=== PATIENT | female | born 1955 | race Caucasian/White ===

== ENCOUNTER 2020-07-11 17:41 | Inpatient (IN) | payer BC, OTHER ==
--- NOTE | 2020-07-11 18:37 | RAD ---
LEFT ELBOW: 07/11/20 Four views. HISTORY: Elbow pain. Injury with pain. No evidence of fracture. No evidence of joint effusion. IMPRESSION: No acute abnormality identified. POS: AGW
--- NOTE | 2020-07-11 18:39 | RAD ---
LEFT HIP: 07/11/20 Two views. HISTORY: Injury with pain to hip. There is subcapital fracture involving the left hip with mild displacement of the femoral head. There is evidence of fracture involving the left superior pubic ramus at the pubic bone. This is not well evaluated. IMPRESSION: 1. Subcapital fracture left hip. 2. Evidence of fracture of the superior left ramus at the pubic bone. Recommend dedicated AP pel vis. POS: AGW
[2020-07-11 19:05] LABS: #Eosinphils 0.1 thou/uL (0.0-0.7); #Lymphocytes 1.7 thou/uL (1.20-3.40); #Monocytes 0.5 thou/uL (0.11-0.59); #Neutrophils 6.5 thou/uL (1.40-6.50); %Basophils 0.5 % (0.0-1.0); %Eosinophils 0.8 % (0.0-10.0); %Monocytes 6.2 % (0.0-10.0); %Neutrophils 73.5 % (42.0-75.0); Hemoglobin 12.3 g/dL (12.0-16.0); Mean Corpuscular HGB CONC 32.8 g/dL (32.0-36.0); Mean Corpuscular Hemoglobin 30.9 pg (27.0-31.0); Mean Corpuscular Volume 94.1 fL (78.0-98.0); Mean Platelet Volume 6.8 fL (7.4-10.4); Platelet Count 241 thou/uL (130-400); RBC Distribution Width 11.5 % (11.5-14.5); Red Blood Cell (RBC) Count 3.98 mill/uL (4.20-5.40); White Blood Cell (WBC) Count 8.8 thou/uL (4.8-10.8)
[2020-07-11 19:25] LABS: Anion Gap 13 mmol/L (10-20); BUN (Urea Nitrogen) 9 mg/dL (9.8-20.1); Calc. Creatinine Clearance 0 mL/min (70-130); Carbon Dioxide 27 mmol/L (23-31); Chloride 106 mmol/L (98-107); Glucose 118 mg/dL (80-115); Potassium 3.7 mmol/L (3.5-5.1); Sodium 142 mmol/L (136-145)
[2020-07-11] MEDS ORDERED: Acetaminophen 500 MG TAB ONE (20:22)
[2020-07-11] MEDS ORDERED: Morphine 2 MG/ML VIAL SLOW IVP PRN (22:14)
[2020-07-11] MEDS ORDERED: Dextrose 5% in Water 1,000 ML IV PRN (22:14)
[2020-07-11] MEDS ORDERED: hydrALAZINE 20 MG/ML VIAL SLOW IVP PRN (22:14)
[2020-07-11] MEDS ORDERED: Ondansetron ODT 4 MG TAB PO PRN (22:14)
[2020-07-11] MEDS ORDERED: Dextrose 50% Abboject 50 ML SYRINGE SLOW IVP PRN (22:14)
[2020-07-11] MEDS ORDERED: Cyclobenzaprine 10 MG TAB PO PRN (22:42)
[2020-07-11] MEDS ORDERED: Acetaminophen 500 MG TAB PO PRN (22:42)
[2020-07-11] MEDS ORDERED: Ibuprofen 600 MG TAB PO SCH (23:00)
--- NOTE | 2020-07-12 | RAD ---
AP pelvis one view HISTORY: Fall. Injury. FINDINGS: Comminuted minimally displaced fracture involving the left superior pubic ramus is again de monstrated. Mild valgus angulation at a subcapital fracture left hip. Other pubic rami are intact. No displaced sacral fracture evident, although large amount of stool obs cures detail. Phleboliths project over the pelvis. IMPRESSION : Left superior pubic ramus fracture and left hip fracture.
[2020-07-12 01:57] LABS: SARS-CoV-2 PCR by NAA Not Detected (NotDetected)
[2020-07-12 02:22] VITALS: BMI 18.3
[2020-07-12] MEDS ORDERED: Cyclobenzaprine 10 MG TAB PO PRN (04:22)
[2020-07-12] MEDS ORDERED: traMADol HCl 50 MG TAB PO PRN (04:22)
[2020-07-12 05:45] LABS: #Lymphocytes 0.9 thou/uL (1.20-3.40); #Monocytes 0.6 thou/uL (0.11-0.59); #Neutrophils 9.2 thou/uL (1.40-6.50); %Basophils 0.1 % (0.0-1.0); %Eosinophils 0.4 % (0.0-10.0); %Monocytes 5.4 % (0.0-10.0); %Neutrophils 86.1 % (42.0-75.0); Mean Corpuscular HGB CONC 33.2 g/dL (32.0-36.0); Mean Corpuscular Volume 93.3 fL (78.0-98.0); Mean Platelet Volume 6.8 fL (7.4-10.4); Platelet Count 198 thou/uL (130-400); RBC Distribution Width 11.5 % (11.5-14.5); Red Blood Cell (RBC) Count 3.86 mill/uL (4.20-5.40); White Blood Cell (WBC) Count 10.7 thou/uL (4.8-10.8)
[2020-07-12 05:52] LABS: INR-International Normal Ratio 1.2; Prothrombin Time 15.5 sec (12.0-14.7)
--- NOTE | 2020-07-12 05:54 | HP ---
CHIEF COMPLAINT: Left hip pain. HISTORY OF PRESENT ILLNESS: A 65-year-old female, Ms. Zarate was brought to the emergency department complaining of left hip pain. Patient states that she was in her house trying to step over a wooden plank that separates her dogs out from the kitchen. The patient caught her foot on the wood and it would not stop and fell backwards, landing on the left hip, elbow, and left hand. The patient is complaining of left hip pain, pain 9/10. The patient denies loss of consciousness, chest pain, or shortness of breath. The patient has not taken Tylenol or ibuprofen to relieve the pain. The patient is not on anticoagulation. The patient denies loss of consciousness, shortness of breath, chest pain, blurry vision, nausea, or vomiting. REVIEW OF SYSTEMS: Negative except for above. PAST MEDICAL HISTORY: Osteoporosis. MEDICATIONS: None. PAST SURGICAL HISTORY: Unknown. SOCIAL HISTORY: Drinks occasionally. Lives at home with daughter, is active normally. OBJECTIVE: VITAL SIGNS: Blood pressure 128/80, heart rate 94, respiratory rate 20, and O2 saturation 98% on room air. GENERAL: Patient is sitting upright in the stretcher in the ICU, no acute distress. HEENT: Head is normocephalic, atraumatic. No cervical tenderness. Active range of motion and flexion and extension of the patient's neck. CARDIAC: Regular sinus rhythm. LUNGS: Equal breath sounds bilaterally. No respiratory distress. ABDOMEN: Soft, nontender to palpation. EXTREMITIES: Upper extremities 4/5 strength bilaterally. Pain with palpation to the left elbow and left hand. Pain 5/5. Lower extremities bilaterally strength is intact, actively dorsiflex and plantar flex feet bilaterally. Sensation intact. +2 DP, PT pulses. LABORATORY DATA: White blood cell count 8.8, hemoglobin 12.3, hematocrit 37.5, platelet count 241. Chemistry; sodium 142, potassium 3.7, chloride 106, carbon dioxide 27, creatinine 0.71. IMAGING STUDIES: Left hip subcapital fracture. Evidence of fracture in superior left ramus, pubic bone. ASSESSMENT: 1. Ground level fall. 2. Fracture of the superior left ramus, pubic bone, subcapital fracture of the left hip. PLAN: A 65-year-old female status post ground level fall, left hip fracture. The patient was seen in the ED, the patient will be started on DVT prophylaxis. IS and .Dr. Gustafson has seen the patient, is planning on taking the patient to the OR in the morning. Patient will remain n.p.o. After this dictation, I will discuss this patient with Dr. Delgadillo. Job ID: [id number] MTDD
[2020-07-12 06:09] LABS: ALT (SGPT) 19 U/L (8-55); AST (SGOT) 24 U/L (5-34); Albumin 3.7 g/dL (3.4-4.8); Alkaline Phosphatase 59 U/L (40-110); Anion Gap 13 mmol/L (10-20); BUN (Urea Nitrogen) 14 mg/dL (9.8-20.1); Bilirubin, Total 1.2 mg/dL (0.2-1.2); Calc. Creatinine Clearance 78 mL/min (70-130); Calcium 8.8 mg/dL (7.8-10.44); Carbon Dioxide 25 mmol/L (23-31); Chloride 104 mmol/L (98-107); Globulin 2.6 g/dL (2.4-3.5); Glucose 131 mg/dL (80-115); Potassium 3.8 mmol/L (3.5-5.1); Protein, Total 6.3 g/dL (5.8-8.1); Sodium 138 mmol/L (136-145)
[2020-07-12] MEDS: Acetaminophen 325 MG TAB PO SCH ×4 (06:40→23:35)
[2020-07-12] MEDS: traMADol HCl 50 MG TAB PO SCH ×4 (06:41→23:35)
[2020-07-12] MEDS: Ibuprofen 600 MG TAB PO SCH ×3 (06:41→21:00)
[2020-07-12] MEDS ORDERED: CEFAZOLIN 2 GM in Premix Bag 1 BAG IVPB SCH (08:00)
--- NOTE | 2020-07-12 08:18 | CON ---
DATE OF CONSULTATION: HISTORY OF PRESENT ILLNESS: We were asked by Trauma in the ER to see patient. The patient was in her kitchen. She has a wood plank across the doorway to keep her dogs out. Unfortunately, trying to get over this doorway, she did not quite make it and fell. She landed on her left hip, her wrist, and elbow. This morning, she states the hip is minimally painful even with movement. The wrist and elbow are moving fine. X-rays of those areas were negative. The hip, although has an impacted femoral neck fracture. Other than stated above, she has no other injuries. She is healthy. She walks 5 miles a day and denies any numbness and tingling down that lower extremities. PAST MEDICAL HISTORY: Osteoporosis. MEDICATIONS: None, but she took alendronate for five years. PAST SURGICAL HISTORY: None. SOCIAL HISTORY: She drinks very intermittently, maybe one drink every six months. Lives at home. No alcohol, nicotine, or drug products other than stated above. 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 FAMILY HISTORY: For this event is noncontributory. REVIEW OF SYSTEMS: Other than some mild hip pain, she is quite healthy and rest of review of systems is negative. PHYSICAL EXAMINATION: GENERAL: A well-nourished, well-developed female, alert, pleasant, no acute distress. Speech clear. Affect pleasant. Answers questions appropriately. She is alert and oriented x3. She is currently resting on a bed in room 3314. Scalp atraumatic. Face symmetric. Tongue midline. HEENT: Wrist exam normal. NECK: Supple. Trachea midline.\ EXTREMITIES: Upper extremities equal, size, shape, and symmetry. Normal bulk and tone. She has no tenderness to palpation over wrist or elbow and she is moving both upper extremities normally. VITAL SINGS: Respirations are 16. No acute distress. PELVIS: No pain with rocking hips. Remarkably, she has minimal hip pain unless perform internal or external rotation. She is moving extremities well. Toes, feet, knees sensations are intact as are pulses equally. DIAGNOSTIC STUDIES: Her x-rays show a subcapital left hip fracture with some impaction of the neck. She also has a very slight rami fracture on the left, located at the pubic bone. Labs; CBC normal. Coags, her PT is a little bit elevated. Chemistries, glucose is little bit elevated COVID is negative. ASSESSMENT: Left hip fracture. PLAN: We will get her set up for a left hemiarthroplasty. I explained both procedures of a ariana versus a total hip replacement and she understands. She is quite active, walks 5 miles a day. She is retired, but she wants to remain active. I have gone over the risks and benefits of surgery. She understands these risks and benefits. Her questions and concerns have been addressed, and she is amenable to go forth with surgery. We will get a consent going, antibiotics get her placed on the surgery schedule. Once her family gets here if they have further questions, we can address those at that time. Job ID: [id number] MTDD
[2020-07-12] MEDS ORDERED: Ketorolac Tromethamine 30 MG/ML VIAL ONE (09:45)
[2020-07-12] MEDS ORDERED: Dexamethasone 20 MG/5 ML VIAL ONE (09:45)
[2020-07-12] MEDS ORDERED: Metoclopramide HCl 10 MG/2 ML VIAL ONE (09:45)
[2020-07-12] MEDS ORDERED: Glycopyrrolate 0.2 MG/ML 5 ML SYRINGE ONE (09:45)
[2020-07-12] MEDS ORDERED: PROPOFOL 200 MG/20 ML VIAL ONE (09:45)
[2020-07-12] MEDS ORDERED: Ondansetron PF 4 MG/2 ML Vial ONE (09:45)
[2020-07-12] MEDS ORDERED: Rocuronium Bromide 10 MG/ML (10ML VIAL) ONE (09:45)
[2020-07-12] MEDS ORDERED: PHENYLEPHRINE-NS 100 MCG/ML 10 ML SYRINGE ONE (09:45)
[2020-07-12] MEDS: Famotidine 20 MG TAB PO SCH ×2 (12:25→21:00)
[2020-07-12] MEDS ORDERED: Fentanyl 100 MCG/2 ML VIAL ONE ×2 (12:40→13:29)
--- NOTE | 2020-07-12 14:58 | OP ---
DATE OF PROCEDURE: 07/12/2020 PROCEDURE PERFORMED: Left total hip arthroplasty. PREOPERATIVE DIAGNOSIS: Displaced left femoral neck fracture. POSTOPERATIVE DIAGNOSIS: Displaced left femoral neck fracture. COMPLICATIONS: None. ESTIMATED BLOOD LOSS: 150 mL. RETAIL PHARMACY MANAGER: Lynn Flannery PA-C. IMPLANTS: [place] total hip arthroplasty was utilized, size 7 Accolade II stem Press-Fit, size 36 mm, negative 5 mm ceramic femoral head, size 56 cluster hole acetabular shell. INDICATIONS: Ms. Zarate is a 65-year-old female, who has fallen and fractured her left femoral neck. She has been indicated for total hip arthroplasty to restore function and relieve pain. Risks have been reviewed with her in detail. She has elected to proceed with the operation. DESCRIPTION OF PROCEDURE: Ms. Zarate was identified in the preoperative holding area. Her correct extremity was marked. She was carried to the operating room. She was positioned supine. General anesthesia was induced. A multidisciplinary time-out was performed. The left lower extremity was prepped and draped in sterile fashion. We began the procedure with posterior approach to the hip. We dissected down through the subcutaneous tissues to the fascia, which was opened. We then exposed the underlying short external rotators. We subperiosteally divided these from the proximal femur. We performed a capsulotomy. We then removed the broken femoral head and neck fragments. At this point, we performed acetabular exposure and excised the labrum. We then cleared the cartilage from the acetabular cup. At this point, we reamed from a size 44 to a size 56. This gave a good fit. We then impacted a 56 mm acetabular shell. We placed two screws further in our stability. At this point, we thoroughly irrigated, and then impacted our 10-degree liner. We then moved to the femur. We exposed the proximal femur and entered the intramedullary canal. We then broached up from a size 0 to a size 7. This gave a good fit and fill with appropriate length. We trialed off this. A negative 5 head gave stability with full range of motion and equal leg length. We removed our trial components. We then impacted our final stem and head. Again, the hip was reduced. Stability was once more assessed. We thoroughly irrigated with copious lavage. We then closed the deep tissues with #5 Ethibond suture followed by layered closure including #2 Vicryl for the fascia. A sterile dressing was applied. The patient was taken to the recovery room in good condition. The medical assistant internal medicine surgeon was responsible for positioning the patient, preparing the injured extremity, applying the tourniquet, and assisting in preparation for surgery. The medical assistant internal medicine was instrumental in reducing the injured limb by applying traction and reduction maneuvers as well as holding retractors and reduction tools. The medical assistant internal medicine also was instrumental in assisting in exposure throughout the operation using appropriate retractors. The medical assistant internal medicine participated in closure of the operative site as well as dressing application and splint application. Job ID: [id number]
--- NOTE | 2020-07-12 15:29 | RAD ---
SINGLE VIEW OF THE LEFT HIP: 07/12/20 HISTORY: Status post left hip arthroplasty. COMPARISON: 07/11/20 FINDINGS: A single cross-table lateral view of the left hip shows the patient to be status post left hip arthro plasty without perihardware loosening or fracture. Overlying skin betsy and air in the soft tissues are from recent surgery. IMPRESSION: Status post left hip arthroplasty without evidence of complication. POS: EAA
--- NOTE | 2020-07-12 15:31 | RAD ---
SINGLE VIEW OF THE PELVIS: 07/12/20 COMPARISON: 07/11/20. HISTORY: Left hip fracture status post hip arthroplasty. FINDINGS: Single view of the pelvis shows the patient is status post left hip arthroplasty without perihardware lucency or fracture. Air in the soft tissues and overlying skin betsy are from recent surgery. Fra ctures are again seen of the right superior and likely the right inferior pubic rami. IMPRESSION: 1. Status post left hip arthroplasty without evidence of complication. 2. Fractures of the left aspect of the pelvis as above. POS: LUCRETIA
[2020-07-12] MEDS ORDERED: Sodium Chloride 0.9% 500 ML IV SCH (17:45)
--- NOTE | 2020-07-12 18:14 | PRG ---
DATE OF SERVICE: 07/12/2020 SUBJECTIVE: The patient is just returned from the operating room after she underwent left total hip arthroplasty for a displaced left femoral neck fracture. The patient tolerated this procedure well and currently, her pain is controlled. She has not attempted a diet yet. PHYSICAL EXAMINATION: VITAL SIGNS: Temperature is 98.5, heart rate 89, blood pressure 115/73, respirations 14, oxygen saturation 99% on room air. GENERAL: The patient is resting comfortably in bed. She is still drowsy from anesthesia, but would open her eyes to loud, verbal stimuli. She was able to answer simple questions and follow very simple commands. HEENT: Unremarkable. LUNGS: Clear to auscultation with moderate inspiratory and expiratory effort. HEART: Regular rate and rhythm. ABDOMEN: Soft, nontender with active bowel sounds. EXTREMITIES: Neurovascularly intact x4. Postop dressing is clean, dry, and intact. LABORATORY FINDINGS: White blood cell count 10.7, hemoglobin 12.0, hematocrit 36.0, platelets 198. Sodium 138, potassium 3.8, chloride 104, CO2 of 25, BUN 14, creatinine 0.70, glucose 131. There are no radiographs reviewed this morning. ASSESSMENT: 1. Status post ground level fall. 2. Left femoral neck fracture, status post total hip arthroplasty. 3. Left superior pubic rami fracture. PLAN: Plan will be to continue supportive care. Begin diet, physical therapy, and discuss placement. The evaluation and examination were discussed with Dr. Chaudhary during rounds this morning. Job ID: [id number]
[2020-07-12] MEDS: CEFAZOLIN 2 GM in Premix Bag 1 BAG IVPB SCH (21:00)
[2020-07-12] MEDS: Ibuprofen 200 MG TAB PO SCH (23:34)
[2020-07-13] MEDS ORDERED: Lactated Ringer's 500 ML IV SCH (02:45)
--- NOTE | 2020-07-13 05:00 | PRG ---
DATE OF SERVICE: 07/13/2020 SUBJECTIVE: Ms. Ximena Zarate is a 65-year-old female seen during evening rounds, status post ground level fall. Status post left femoral neck fracture. The patient is recovering well, not complaining of pain, tolerating regular diet. The patient has a Greenberg catheter placed. The patient is having difficulty urinating. She received a 500 Lr bolus this afternoon. PT saw the patient today, but unable to treat secondary to pain. New orders were placed for PT to see the patient again. OBJECTIVE: VITAL SIGNS: Temperature 98, pulse 104, respiratory rate 18, O2 saturation 93, blood pressure 99/61. GENERAL: The patient is not in acute distress, resting comfortably in bed. No signs of pain. LUNGS: Clear bilaterally. No accessory muscle use. Speaking in full sentences. GENITOURINARY: Greenberg catheter in place, output . EXTREMITIES: Left hip tender to palpation. No strikethrough bandage. Assessment 1 s/p fround level fall 2 s/p left femoral neck fx PLAN:65 y/o female ground level fall, s/p left femoral nek fx. Decrease UO following surgery, strict I&O. The patient will continue to work with PT/OT, pending discharge home or to rehab depending on progress of the patient . Job ID: [id number] MTDD
[2020-07-13] MEDS: traMADol HCl 50 MG TAB PO SCH ×4 (05:10→23:44)
[2020-07-13] MEDS: CEFAZOLIN 2 GM in Premix Bag 1 BAG IVPB SCH (05:11)
[2020-07-13] MEDS: Ibuprofen 200 MG TAB PO SCH ×3 (05:11→20:15)
[2020-07-13] MEDS: Acetaminophen 325 MG TAB PO SCH ×4 (05:11→23:44)
[2020-07-13 06:16] LABS: #Lymphocytes 0.6 thou/uL (1.20-3.40); #Monocytes 0.6 thou/uL (0.11-0.59); %Basophils 0.1 % (0.0-1.0); %Eosinophils 0.2 % (0.0-10.0); %Lymphocytes 4.5 % (21.0-51.0); %Monocytes 4.9 % (0.0-10.0); %Neutrophils 90.3 % (42.0-75.0); Mean Corpuscular HGB CONC 34.2 g/dL (32.0-36.0); Mean Corpuscular Hemoglobin 32.7 pg (27.0-31.0); Mean Corpuscular Volume 95.4 fL (78.0-98.0); Mean Platelet Volume 7.3 fL (7.4-10.4); Platelet Count 135 thou/uL (130-400); RBC Distribution Width 11.7 % (11.5-14.5); Red Blood Cell (RBC) Count 3.05 mill/uL (4.20-5.40); White Blood Cell (WBC) Count 12.2 thou/uL (4.8-10.8)
[2020-07-13 06:43] LABS: Anion Gap 13 mmol/L (10-20); BUN (Urea Nitrogen) 23 mg/dL (9.8-20.1); Calc. Creatinine Clearance 56 mL/min (70-130); Calcium 8.1 mg/dL (7.8-10.44); Carbon Dioxide 25 mmol/L (23-31); Chloride 105 mmol/L (98-107); Glucose 167 mg/dL (80-115); Phosphorus 3.1 mg/dL (2.3-4.7); Potassium 4.6 mmol/L (3.5-5.1); Sodium 138 mmol/L (136-145)
[2020-07-13] MEDS: Famotidine 20 MG TAB PO SCH ×2 (09:59→20:14)
[2020-07-13] MEDS: Aspirin 81 mg Enteric Coated Tablet PO SCH ×2 (09:59→20:15)
[2020-07-13] MEDS: Ondansetron PF 4 MG/2 ML Vial IVP PRN ×2 (10:02→16:42)
[2020-07-13] MEDS ORDERED: Bisacodyl 5 MG TAB PO SCH (11:15)
[2020-07-13] MEDS ORDERED: Senokot 8.6 MG TAB PO SCH (11:15)
[2020-07-13] MEDS ORDERED: Sodium Chloride 0.9% 1,000 ML IV SCH (16:00)
--- NOTE | 2020-07-14 01:09 | PRG ---
DATE OF SERVICE: 07/13/2020 SUBJECTIVE: Postop day #1, status post left total hip arthroplasty for displaced left femoral neck fracture. Tolerated procedure well. Pain is generally controlled; however, patient has had poor p.o. intake, decreased urine output, and somewhat of a soft blood pressure. She said she has gotten up and feels okay aside from slight pain. OBJECTIVE: VITAL SIGNS: Today, temperature is 97.7, blood pressure is 105/71, heart rate is 91, breathing 16 times a minute, 96% on room air. GENERAL: A 65-year-old female, sitting up in no acute distress. Nontoxic appearing. HEENT: Normocephalic, atraumatic. RESPIRATORY: Equal rise and fall. Bilateral breath sounds. clear to auscultation in upper and lower lobes bilaterally. CARDIOVASCULAR: Regular rhythm. No murmur. Strong pulses. Surgical site is noted clean and dry. ABDOMEN: Soft and nontender. Pelvis is stable. MUSCULOSKELETAL: Moves her extremities well. PSYCH: Normal mood and affect. GCS is 15. LABORATORY DATA: From today, white blood cell count of 12.2, platelets are 135. Hemoglobin and hematocrit is 10.0 and 29.1 respectively. Chemistry, sodium is 138, potassium 4.6, chloride is 105, CO2 is 25, creatinine 0.98, glucose is 167, calcium is 8.1, phos is 3.1, magnesium is 2.0. Cortisol is 24.3. ASSESSMENT AND PLAN: 1. Status post ground level fall. 2. Left femoral neck fracture, status post total hip arthroplasty. 3. Left superior pubic rami fracture. PLAN: 1. Continue supportive care. 2. Remove the Greenberg catheter now. 3. Additional fluid bolus now. 4. Encourage ambulation movement and IS as well as p.o. intake. 5. Continue pain control. 6. Work with PT/OT. 7. Hope to start planning discharging the ensuing days. 8. We will repeat labs in the morning to make sure her kidneys have not taken a hit. Job ID: [id number]
[2020-07-14 06:09] LABS: Anion Gap 9 mmol/L (10-20); BUN (Urea Nitrogen) 28 mg/dL (9.8-20.1); Calc. Creatinine Clearance 68 mL/min (70-130); Carbon Dioxide 26 mmol/L (23-31); Chloride 106 mmol/L (98-107); Glucose 117 mg/dL (80-115); Magnesium 2.3 mg/dL (1.6-2.6); Phosphorus 1.8 mg/dL (2.3-4.7); Potassium 3.9 mmol/L (3.5-5.1); Sodium 137 mmol/L (136-145)
[2020-07-14] MEDS: Acetaminophen 325 MG TAB PO SCH ×3 (06:36→17:07)
[2020-07-14] MEDS: Ibuprofen 200 MG TAB PO SCH ×3 (06:38→21:23)
[2020-07-14] MEDS: traMADol HCl 50 MG TAB PO SCH ×3 (06:39→17:08)
[2020-07-14] MEDS ORDERED: Sodium Phosphate 15 MMOL in Sodium Chloride 0.9% 250 ML 250 ML IVPB SCH (07:30)
[2020-07-14] MEDS: Aspirin 81 mg Enteric Coated Tablet PO SCH ×2 (08:12→21:23)
[2020-07-14] MEDS: Famotidine 20 MG TAB PO SCH ×2 (08:12→21:23)
--- NOTE | 2020-07-14 10:04 | PRG ---
DATE OF SERVICE: 07/14/2020 SUBJECTIVE: Ximena is a 65-year-old white female, postop day 2 for left total hip arthroplasty for femoral treatment for fracture. She is doing very well. She is comfortable at this point and has no complaints. Her pain is better and not requiring any pain medication. OBJECTIVE: VITAL SIGNS: Temperature 98.4, pulse 74, respiratory rate 20, and blood pressure is 117/68. GENERAL: She is alert and oriented to person, place, time, situation, responsive, appropriate, and conversive with examiner. SKIN: Her incision is clean. There is no strikethrough. She was taken down and inspected. No drainage is noted. No erythema. EXTREMITIES: No leg length discrepancy, malrotation, or shortening is identified in left lower extremity. LABORATORY DATA: Hemoglobin and hematocrit 10.0 and 29.1. IMPRESSION: 1. A 65-year-old female, postop day 2 from left total hip arthroplasty for fracture treatment. 2. Asymptomatic postoperative anemia. PLAN: Continue current care. Disposition per Trauma Team. She is probably stable to discharge to home from an orthopedic standpoint, but we will leave that decision up to the admitting service. Continue to follow. Job ID: [id number]
[2020-07-14] MEDS ORDERED: PHOS-NAK 1 PKT PACK PO SCH (10:15)
--- NOTE | 2020-07-14 20:04 | PRG ---
DATE OF SERVICE: 07/14/2020 SUBJECTIVE: A 65-year-old female, hospital day 3, postop day 2, status post left total hip arthroplasty, displaced left femoral neck fracture, tolerated well. She had some bouts of hypotension. Cortisol was checked, it is actually acceptable. Blood pressure has improved. Her urination has improved. She is tolerating a diet. Passing flatus and hoping that she will have a bowel movement soon. She has had her pain is generally controlled. She is ambulating at times and she is wanting to go home likely tomorrow with her daughter. OBJECTIVE: VITAL SIGNS: Temperature is 98.0, blood pressure is 116/57, heart rate 76, breathing 20 times per minute, 98% on room air. GENERAL: A 65-year-old tall female, in no acute distress. HEENT: Normocephalic. RESPIRATORY: Equal rise and fall. No respiratory distress. CARDIOVASCULAR: Strong pulses. NEUROLOGIC: Alert and oriented. EXTREMITIES: Moves all extremities. SKIN: Warm and dry. PSYCHIATRIC: Normal mood and affect. LABORATORY DATA: Today, sodium is 137, potassium 3.9, chloride is 106, CO2 is 26, BUN of 28, creatinine 0.81, glucose 117, calcium is 8.0, phos is 1.8, and mag of 2.3. ASSESSMENT: 1. Status post ground level fall. 2. Left femoral neck fracture, status post total hip arthroplasty. 3. Left superior rami fracture. PLAN: 1. Continue supportive care. 2. Greenberg is out to urinate well. 3. Monitor fluids. If blood pressure remained stable, hope to discharge home tomorrow. 4. Encourage ambulation and IS. The patient will demonstrate the same. 5. Continue with PT/OT. 6. I have updated the patient and the patient's daughter at the bedside and answered all questions. Job ID: [id number]
[2020-07-15] MEDS: Acetaminophen 325 MG TAB PO SCH ×3 (00:34→12:04)
[2020-07-15] MEDS: traMADol HCl 50 MG TAB PO SCH ×3 (00:34→12:04)
[2020-07-15] MEDS: Ibuprofen 200 MG TAB PO SCH ×2 (06:27→14:36)
[2020-07-15] MEDS: Famotidine 20 MG TAB PO SCH (08:42)
[2020-07-15] MEDS: Aspirin 81 mg Enteric Coated Tablet PO SCH (08:42)
--- NOTE | 2020-07-15 15:23 | DIS ---
DATE OF ADMISSION: 07/11/2020 DATE OF DISCHARGE: 07/15/2020 ADMITTING DIAGNOSIS: Displaced left femoral neck fracture. DISCHARGE DIAGNOSIS: Status post operative repair of left femoral neck fracture. PROCEDURE PERFORMED: Left hip arthroplasty by Dr. Gonzalez. HOSPITAL COURSE: A 65-year-old female patient, Ximena Zarate, was brought into the emergency department following a slip and fall. The patient was brought to the OR on 07/09 for left hip fracture. The patient was started on pain regimen, mechanical DVT prophylaxis, and bowel regimen. The patient was brought to OR on 07/09 for left hemiarthroplasty by Dr. Gonzalez. Following surgery, the patient's pain was well controlled and the patient was tolerating regular diet. PT/OT evaluated the patient, and the patient is making great progress with PT and is walking over 250 feet, able to do 1 stair. At the time of discharge, the patient is safe to be discharged home. The patient will be given a script for tramadol, Flexeril, and aspirin. The patient can take Tylenol, ibuprofen [id number] as needed for pain. PHYSICAL EXAMINATION: GENERAL: At time of discharge, the patient is sitting up in bed, in no acute distress. HEENT: Head; normocephalic and atraumatic. CARDIAC: Regular rate, regular rhythm. LUNGS: Equal breath sounds bilaterally. ABDOMEN: Soft, nontender. EXTREMITIES: Left extremity sensation intact. Bilateral PT and DP pulses. ASSESSMENT: Left hip total arthroplasty from ground level fall. PLAN: The patient has been scheduled to make followup with Orthopedic in 14 days. The patient does not need to follow up with the Trauma Team at this time. Take ASA 81mg BID Take Tramadol 50mg every 6hr PRN Take Flexeril 5mg TID as needed Take Tylenol 650mg every 6hrs, alternate Ibuprofen 500mg every 4-6hrs -Ruth Damon will remain off work for the next 14days to take . -Follow up with Orthopedic clinic Job ID: [id number] [facility]
[2020-07-15 15:24] VITALS: BP 115/74; TEMP 98
== END 2020-07-15 15:42 | disposition home or self-care (01) | DRG 956 ==
LOC: ERS 17:41 → ERHOLD 19:34 → SJJU 07-12 01:41
PROVIDERS: ADMIT Surgery; ATTEND Surgery
PROC: 0SRB04Z Replacement of Left Hip Joint with Ceramic on Polyethylene Synthetic Substitute, Open Approach (ICD-10-PCS; principal; 2020-07-12)
DX: S72.012A Unspecified intracapsular fracture of left femur, initial encounter for closed fracture (principal); S32.592A Other specified fracture of left pubis, initial encounter for closed fracture; M81.0 Age-related osteoporosis without current pathological fracture; D64.9 Anemia, unspecified; W18.30XA Fall on same level, unspecified, initial encounter; Y92.009 Unspecified place in unspecified non-institutional (private) residence as the place of occurrence of the external cause; Z20.822 Contact with and (suspected) exposure to COVID-19
CPT/HCPCS: 36415; 72170; 80048; 80053; 82533; 83735; 84100; 85025; 85610; 85730; 86850; 86900; 86901; 87635; 93005; J0690; J1100; J1885; J2405; J2704; J2765; J3010; J7050; U0003; U0005